=== PATIENT | female | born 1975 | race Caucasian/White ===

== ENCOUNTER 2020-05-20 09:44 | Emergency (ER) | payer OTHER ==
[~2020-05-20] VITALS: Ht 188 cm; Wt 85.4 kg
[~2020-05-20 09:44] MED LIST: PROM12.57 PO
--- NOTE | 2020-05-20 10:00 | NUR ---
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 stated that she has recently changed her control. no CP or n/v. on the monitor SR 98.
--- NOTE | 2020-05-20 10:51 | NUR ---
pt down to [place].
[2020-05-20 11:19] LABS: BASOPHILS % (AUTO) 1 % (0-1); EOSINOPHILS % (AUTO) 1 % (1-7); LYMPHOCYTES % (AUTO) 27 % (22-44); MEAN CORPUSCULAR HEMOGLOBIN 35.8 pg (27.0-34.8); MEAN CORPUSCULAR HGB CONC 35.4 g/dL (32.4-35.8); MEAN PLATELET VOLUME 7.2 fL (7.4-10.4); MONOCYTES % (AUTO) 11 % (2-9); NEUTROPHILS % (AUTO) 60 % (42-75); PLATELET COUNT 205 x10^3/uL (130-400); RED BLOOD COUNT 3.88 x10^6/uL (3.82-5.3); RED CELL DISTRIBUTION WIDTH 12.4 % (9.6-15.2)
[2020-05-20 11:24] LABS: MD NO
[2020-05-20 11:28] LABS: ANION GAP 7 mmol/L (5-15); CALCIUM 8.9 mg/dL (8.5-10.1); CHLORIDE 104 mmol/L (98-107)
[2020-05-20 11:47] VITALS: BP 149/98
--- NOTE | 2020-05-20 11:49 | NUR ---
PT IN BED NO DISTRESS
== END 2020-05-20 12:24 | disposition home or self-care (01) ==
LOC: ED 12:12
DX: G44.219 Episodic tension-type headache, not intractable (principal); R00.2 Palpitations; R42 Dizziness and giddiness; H53.8 Other visual disturbances; F41.9 Anxiety disorder, unspecified; I10 Essential (primary) hypertension; F17.210 Nicotine dependence, cigarettes, uncomplicated
CPT/HCPCS: 36415; 70450; 71045; 80048; 85025; 93005; 99285